=== PATIENT | female | born 1950 | race Caucasian/White ===

== ENCOUNTER → 2024-04-09 | Outpatient (CLI) | payer MEDICARE, SELFPAY ==
[2024-04-09 12:20] LABS: Absolute Lymphocyte Count 1.64 X10^3/uL (0.83-4.51); Absolute Neutrophil Count 5.3 X10^3/uL (2.0-7.7); Basophil# 0.04 X10^3/uL; Basophil% 0.5 % (0-1); Eosinophil# 0.11 X10^3/uL; Eosinophils% 1.4 % (0-5); Hematocrit 42.6 % (37-47); Hemoglobin 13.9 g/dL (12.0-15.0); Lymphocyte # 1.64 X10^3/ul (0.83-4.51); Lymphocyte % 21.3 % (19-41); Mean Corp Hgb Conc 32.6 g/dL (32-36); Mean Corpuscular Hgb 27.8 pg (27.0-32.0); Mean Corpuscular Volume 85.2 fL (81-99); Mean Platelet Vol. 9.9 fl (6.2-12.0); Monocyte# 0.62 X10^3/uL; Monocyte% 8.1 % (0-10); NRBC Flagged by Analyzer 0 % (0-5); Neutrophil # 5.26 X10^3/uL (2.7-7.7); Neutrophil % 68.3 % (47-70); Platelet Count 276 K/mm3 (150-450); RBC Distribution Width CV 12.9 % (11.6-14.6); RBC Distribution Width SD 39.8 fl (35.1-43.9); White Blood Count 7.7 K/mm3 (4.4-11.0)
[2024-04-09 12:37] LABS: Vitamin D,25 Hydroxy 33.2 ng/mL
[2024-04-09 12:48] LABS: ALB/GLOB Ratio 0.6 RATIO (0.9-2.4); AST(SGOT) 17 U/L (15-37); Alanine Aminotransfer ALT/SGPT 15 U/L (13-56); Albumin, Serum 3.2 g/dL (3.2-5.0); Alkaline Phosphatase 74 U/L (45-117); Anion Gap 7 (5-15); BUN 15 mg/dL (7-18); BUN/Creat Ratio 14.6 RATIO (10-20); Calcium,Total 9.6 mg/dL (8.5-10.1); Chloride 102 mmol/L (98-107); Cholesterol 164 mg/dL (200); Creatinine, Serum 1.03 mg/dL (0.55-1.02); EST Glomerular Filtration Rate 56 mL/min (>60); Est Glom Filt Rate - Afr Amer 68 mL/min (>60); Globulin 5.2 g/dL (2.2-4.2); Glucose 108 mg/dL (74-106); High Density Lipoprotein 45 mg/dL; Potassium 3.5 mmol/L (3.5-5.1); Protein, Total 8.4 g/dL (6.4-8.2); Sodium Level 134 mmol/L (136-145); T4 Free Direct 1.01 ng/dL (0.76-1.46); Thyroid Stim Hormone (TSH) 5.46 uIU/mL (0.358-3.74); Triglycerides 143 mg/dL; Very Low Density Lipoprotein 29 mg/dL (5-40)
== END | disposition home or self-care (01) ==
PROVIDERS: PCP Family Medicine; Visit Provider Family Medicine
DX: I10 Essential (primary) hypertension (principal); E03.9 Hypothyroidism, unspecified; Z78.0 Asymptomatic menopausal state
CPT/HCPCS: 36415; 80053; 80061; 82306; 84439; 84443; 85025

== ENCOUNTER → 2024-07-21 | Outpatient (CLI) | payer MEDICARE, SELFPAY | END | disposition home or self-care (01) | LOC: MFPLAB 13:53 | PROVIDERS: PCP Family Medicine; Referring Provider Family Medicine; Visit Provider Family Medicine | DX: E03.9 Hypothyroidism, unspecified (principal) | CPT/HCPCS: 36415; 84443 ==

== ENCOUNTER → 2024-10-15 | Outpatient (CLI) | payer MEDICARE, SELFPAY | END | disposition home or self-care (01) | LOC: MTLAB 11:24 | PROVIDERS: PCP Family Medicine; Referring Provider Family Medicine; Visit Provider Family Medicine | DX: E03.9 Hypothyroidism, unspecified (principal) | CPT/HCPCS: 36415; 84443 ==

== ENCOUNTER → 2025-04-11 | Outpatient (CLI) | payer MEDICARE, SELFPAY ==
[2025-04-11 12:39] LABS: Hematocrit 43.4 % (37-47); Hemoglobin 14.8 g/dL (12.0-15.0); Mean Corp Hgb Conc 34.1 g/dL (32-36); Mean Corpuscular Volume 83.9 fL (81-99); Mean Platelet Vol. 9.8 fl (6.2-12.0); Platelet Count 292 K/mm3 (150-450); RBC Distribution Width CV 13.1 % (11.6-14.6); RBC Distribution Width SD 39.8 fl (35.1-43.9); Red Blood Count 5.17 M/mm3 (4.2-5.4); White Blood Count 6.9 K/mm3 (4.4-11.0)
[2025-04-11 13:48] LABS: AST(SGOT) 25 U/L (<=31); Alanine Aminotransfer ALT/SGPT 13 U/L (<=34); Albumin, Serum 4.1 g/dL (3.4-4.8); Alkaline Phosphatase 80 U/L (35-104); Anion Gap 14 (5-15); BUN 12 mg/dL (4-19); BUN/Creat Ratio 13.2 RATIO (10-20); Calcium,Total 9.8 mg/dL (7.6-11.0); Carbon Dioxide 22.0 mmol/L (21.0-32.0); Chloride 102 mmol/L (98-108); Cholesterol 202 mg/dL (<=200); Globulin 4.1 g/dL (2.2-4.2); Glucose 106 mg/dL (70-99); Low Density Lipoprotein Calc. 114 mg/dL; Potassium 3.8 mmol/L (3.3-5.1); Triglycerides 225 mg/dL; Very Low Density Lipoprotein 45 mg/dL (5-40); cholesterol:hdl ratio screen 4.68
[2025-04-11 13:55] LABS: Vitamin D,25 Hydroxy 25.9 ng/mL (30-100)
== END | disposition home or self-care (01) ==
LOC: MFPLAB 11:14
PROVIDERS: PCP Family Medicine; Referring Provider Family Medicine; Visit Provider Family Medicine
DX: I10 Essential (primary) hypertension (principal); E03.9 Hypothyroidism, unspecified; Z13.5 Encounter for screening for eye and ear disorders
CPT/HCPCS: 36415; 80053; 80061; 82306; 83036; 84443; 85027

== ENCOUNTER → 2025-04-12 | Outpatient (CLI) | payer MEDICARE, SELFPAY ==
[2025-04-12 16:03] LABS: Creatinine, Urine (random) 67.90 mg/dL (28.00-217.00); Microalbumin,Random Urine < 12.0 mg/L (<20 mg/L)
== END | disposition home or self-care (01) ==
LOC: LABSPEC 11:31
PROVIDERS: PCP Family Medicine; Referring Provider Family Medicine; Visit Provider Family Medicine
DX: I10 Essential (primary) hypertension (principal); E03.9 Hypothyroidism, unspecified; Z12.5 Encounter for screening for malignant neoplasm of prostate; Z78.0 Asymptomatic menopausal state
CPT/HCPCS: 82043; 82570

== ENCOUNTER → 2025-05-26 | Outpatient (CLI) | payer MEDICARE, SELFPAY ==
--- NOTE | 2025-05-26 12:33 | RAD_ITS ---
PROCEDURE: HUMERUS MIN 2 VIEWS 05/26/2025 REASON FOR EXAM: RIGHT ARM MECHANICAL INJURY TECHNIQUE: Procedure Code: RADHUM Modality: DX Procedure: HUMERUS MIN 2 VIEWS Laterality: Right COMPARISON: None. RAD/Humerus min 2 Views IMPRESSION: Mild right acromioclavicular joint degenerative changes are seen. The right glenohumeral joint is less well seen, but probably with mild degenera tive changes present. Mild degenerative changes are seen of the humeroulnar articulation. No radiopaque foreign body is seen. No fracture or dislocation is identified. If clinical concern persists, short-term follow-up imaging may be obtained to r ule out a currently occult fracture. Reading Location: [facility]
== END | disposition home or self-care (01) ==
LOC: MTRAD 12:33
PROVIDERS: PCP Family Medicine; Referring Provider Family Medicine; Visit Provider Family Medicine
DX: S49.91XA Unspecified injury of right shoulder and upper arm, initial encounter (principal); X58.XXXA Exposure to other specified factors, initial encounter
CPT/HCPCS: 73060